=== PATIENT | male | born 1975 | race Caucasian/White ===

== ENCOUNTER → 2016-08-09 | Outpatient (CLI) | payer OTHER | LOC: HYPER 07:11 | DX: S81.802D Unspecified open wound, left lower leg, subsequent encounter (principal); T24.232D Burn of second degree of left lower leg, subsequent encounter; T31.0 Burns involving less than 10% of body surface; G82.20 Paraplegia, unspecified; Z72.89 Other problems related to lifestyle; X08.8XXD Exposure to other specified smoke, fire and flames, subsequent encounter; X58.XXXD Exposure to other specified factors, subsequent encounter ==

== ENCOUNTER → 2016-08-23 | Outpatient (CLI) | payer OTHER | LOC: HYPER 10:16 | DX: T24.232A Burn of second degree of left lower leg, initial encounter (principal); T24.202A Burn of second degree of unspecified site of left lower limb, except ankle and foot, initial encounter; T25.212A Burn of second degree of left ankle, initial encounter; T25.222A Burn of second degree of left foot, initial encounter; T31.0 Burns involving less than 10% of body surface; G82.20 Paraplegia, unspecified; E66.09 Other obesity due to excess calories; X08.8XXA Exposure to other specified smoke, fire and flames, initial encounter; Y93.89 Activity, other specified; Y92.89 Other specified places as the place of occurrence of the external cause; Y99.8 Other external cause status ==

== ENCOUNTER → 2016-09-06 | Outpatient (CLI) | payer OTHER | LOC: HYPER 07:08 | DX: S80.12XA Contusion of left lower leg, initial encounter (principal); G82.20 Paraplegia, unspecified; E66.09 Other obesity due to excess calories; Z72.89 Other problems related to lifestyle; X58.XXXA Exposure to other specified factors, initial encounter; Y93.89 Activity, other specified; Y92.89 Other specified places as the place of occurrence of the external cause; Y99.8 Other external cause status ==